=== PATIENT | male | born 1990 | race Hispanic/Latino ===

== ENCOUNTER 2018-10-05 21:58 | Observation (INO) | payer OTHER, SELFPAY ==
[~2018-10-05 21:58] MED LIST: ISOVUE-370 76%-LOCM 1 ML ONE
[2018-10-05 22:13] LABS: #Eosinphils 0.1 thou/uL (0.0-0.7); #Lymphocytes 2.6 thou/uL (1.20-3.40); #Monocytes 0.6 thou/uL (0.11-0.59); %Basophils 0.2 % (0.0-1.0); %Eosinophils 1.4 % (0.0-10.0); %Lymphocytes 31.8 % (21.0-51.0); %Monocytes 6.7 % (0.0-10.0); %Neutrophils 59.9 % (42.0-75.0); Hemoglobin 13.7 g/dL (14.0-18.0); Mean Corpuscular HGB CONC 32.4 g/dL (32.0-36.0); Mean Corpuscular Hemoglobin 30.7 pg (27.0-31.0); Mean Corpuscular Volume 94.9 fL (78.0-98.0); Mean Platelet Volume 8.2 fL (7.4-10.4); Platelet Count 251 thou/uL (130-400); RBC Distribution Width 12.3 % (11.5-14.5); Red Blood Cell (RBC) Count 4.45 mill/uL (4.70-6.10); White Blood Cell (WBC) Count 8.3 thou/uL (4.8-10.8)
[2018-10-05 22:32] LABS: ALT (SGPT) 46 U/L (8-55); AST (SGOT) 69 U/L (5-34); Albumin 4.4 g/dL (3.5-5.0); Alcohol 28 mg/dL (Less than 10); Alkaline Phosphatase 105 U/L (40-150); Anion Gap 16 mmol/L (10-20); BUN (Urea Nitrogen) 11 mg/dL (8.9-20.6); Bilirubin, Total 0.6 mg/dL (0.2-1.2); Calc. Creatinine Clearance 0 mL/min (70-130); Calcium 9.4 mg/dL (7.8-10.44); Carbon Dioxide 20 mmol/L (22-29); Chloride 106 mmol/L (98-107); Estimated GFR-MDRD 81; Globulin 2.8 g/dL (2.4-3.5); Glucose 116 mg/dL (70-105); Lipase 105 U/L (8-78); Potassium 3.2 mmol/L (3.5-5.1); Protein, Total 7.2 g/dL (6.0-8.3); Sodium 139 mmol/L (136-145)
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
[2018-10-05] MEDS ORDERED: Adacel (T-DAP) 0.5 ML SYRINGE ONE (22:42)
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
[2018-10-06] MEDS ORDERED: Dextrose 5% in Water 1,000 ML IV PRN (00:46)
[2018-10-06] MEDS ORDERED: Cyclobenzaprine 10 MG TAB PO PRN (00:46)
[2018-10-06] MEDS ORDERED: Ondansetron PF 4 MG/2 ML Vial IVP PRN (00:46)
[2018-10-06] MEDS ORDERED: traMADol HCl 50 MG TAB PO PRN ×2 (00:46)
[2018-10-06] MEDS ORDERED: Ondansetron ODT 4 MG TAB PO PRN (00:46)
[2018-10-06] MEDS ORDERED: Dextrose 50% Abboject 50 ML SYRINGE SLOW IVP PRN (00:46)
[2018-10-06 01:37] VITALS: BMI 28.2
[2018-10-06] MEDS: Ibuprofen 800 MG TAB PO SCH ×2 (01:43→08:23)
[2018-10-06] MEDS ORDERED: Acetaminophen 500 MG TAB PO SCH (02:00)
[2018-10-06] MEDS: Acetaminophen 500 MG TAB PO SCH ×2 (05:31→10:09)
[2018-10-06 07:30] LABS: #Monocytes 0.7 thou/uL (0.11-0.59); #Neutrophils 9.1 thou/uL (1.40-6.50); %Basophils 0.3 % (0.0-1.0); %Eosinophils 0.3 % (0.0-10.0); %Monocytes 6.7 % (0.0-10.0); %Neutrophils 83.8 % (42.0-75.0); Hemoglobin 12.9 g/dL (14.0-18.0); Mean Corpuscular HGB CONC 33.3 g/dL (32.0-36.0); Mean Platelet Volume 8.2 fL (7.4-10.4); Platelet Count 221 thou/uL (130-400); RBC Distribution Width 12.4 % (11.5-14.5); Red Blood Cell (RBC) Count 4.04 mill/uL (4.70-6.10); White Blood Cell (WBC) Count 10.9 thou/uL (4.8-10.8)
[2018-10-06 07:48] LABS: Anion Gap 12 mmol/L (10-20); BUN (Urea Nitrogen) 10 mg/dL (8.9-20.6); Calc. Creatinine Clearance 161 mL/min (70-130); Calcium 9.1 mg/dL (7.8-10.44); Carbon Dioxide 24 mmol/L (22-29); Chloride 105 mmol/L (98-107); Estimated GFR-MDRD Greater than 90; Glucose 96 mg/dL (70-105); Potassium 3.8 mmol/L (3.5-5.1); Sodium 137 mmol/L (136-145)
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
[2018-10-06] MEDS ORDERED: Lactated Ringer's 1,000 ML IV SCH (10:00)
[2018-10-06] MEDS ORDERED: ISOVUE-370 76%-LOCM 1 ML ONE (11:22)
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
[2018-10-06 15:54] VITALS: BP 116/73; TEMP 98.6
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
== END 2018-10-06 15:58 | disposition home or self-care (01) ==
LOC: ERS 21:58 → SURG B 22:52
PROVIDERS: ADMIT Surgery; ATTEND Surgery
DX: S06.0X0A Concussion without loss of consciousness, initial encounter (principal); S10.91XA Abrasion of unspecified part of neck, initial encounter; S00.81XA Abrasion of other part of head, initial encounter; S60.811A Abrasion of right wrist, initial encounter; F17.210 Nicotine dependence, cigarettes, uncomplicated; Z98.890 Other specified postprocedural states; V69.50XA Passenger in heavy transport vehicle injured in collision with unspecified motor vehicles in traffic accident, initial encounter
CPT/HCPCS: 36415; 70450; 70498; 71260; 72125; 74177; 80048; 80053; 80307; 83690; 85025; 90471; 90715; 93005; 94760; 96361; 96374; G0378; G0390; J0131